=== PATIENT | male | born 1950 | race Caucasian/White ===

== ENCOUNTER 2019-08-29 09:32 | Emergency (ER) | payer BC, MEDICARE ==
[~2019-08-29] VITALS: Ht 165.1 cm; Wt 68.2 kg
--- NOTE | 2019-08-29 10:03 | NUR ---
PT AMBULATED FROM TRIAGE TO ROOM 1. ASSISTED PT INTO GOWN, PLACED PT ON MONITOR AND PT BECAME SOB, AND STATED MILD CP. PT NOTED TO HAVE HR 132. EKG REQUESTED
[2019-08-29] MEDS ORDERED: ondansetron/PF 4mg/2ml inj IV ONE (10:05)
[2019-08-29] MEDS ORDERED: normal saline 1000ML IV soln IVB ONE ×2 (10:05→10:20)
[2019-08-29] MEDS ORDERED: diphenhydrAMINE 50 mg/ml inj IV ONE (10:20)
[2019-08-29] MEDS ORDERED: metoclopramide 5 mg/ml inj IV ONE (10:20)
[2019-08-29] MEDS ORDERED: LORazepam 2 mg/ml vial IV ONE (10:20)
[2019-08-29 10:30] LABS: BASOPHILS % (AUTO) 0.7 % (0-1); EOSINOPHILS % (AUTO) 0 % (0-6); HEMATOCRIT 38.9 % (42.0-52.0); HEMOGLOBIN 13.4 g/dl (14.0-17.9); LYMPHOCYTES # (AUTO) 0.5 X10'3 (1.1-4.8); LYMPHOCYTES % (AUTO) 9.2 % (21-51); MEAN CORPUSCULAR HEMOGLOBIN 35.4 PG (27.0-31.0); MEAN CORPUSCULAR HGB CONC 34.4 g/dL (33.0-36.5); MEAN CORPUSCULAR VOLUME 103.1 FL (78-98); MEAN PLATELET VOLUME 7.1 FL (7.4-10.4); MONOCYTES # (AUTO) 0.7 X10'3 (0-0.9); MONOCYTES % (AUTO) 13.8 % (2-12); NEUTROPHILS # (AUTO) 3.9 X10'3 (1.8-7.7); NEUTROPHILS % (AUTO) 76.3 % (42-75); PLATELET COUNT 104 X10'3 (140-440); RED BLOOD COUNT 3.77 X10'6 (4.70-6.10); RED CELL DISTRIBUTION WIDTH 13.3 % (11.5-14.5); WHITE BLOOD COUNT 5.1 X10'3 (4.5-11.0)
[2019-08-29 10:46] LABS: ALANINE AMINOTRANSFERASE 47 U/L (12-78); ALBUMIN/GLOBULIN RATIO 0.8 (1.1-1.5); ALKALINE PHOSPHATASE 146 IU/L (46-116); ANION GAP 14 (8-16); ASPARTATE AMINO TRANSFERASE 76 U/L (10-37); BILIRUBIN,TOTAL 0.9 MG/DL (0.1-1.0); BLOOD UREA NITROGEN 11 MG/DL (7-18); BUN/CREATININE RATIO 11.5 (5.4-32.0); CALCIUM 8.9 MG/DL (8.5-10.1); CHLORIDE 103 MMOL/L (99-107); CREATININE 0.96 MG/DL (0.60-1.10); GLUCOSE 129 MG/DL (70-104); LIPASE 101 U/L (73-393); POTASSIUM 3.7 MMOL/L (3.5-5.1); SODIUM 140 MMOL/L (135-145); TOTAL CARBON DIOXIDE 23.4 MMOL/L (24-32); TOTAL PROTEIN 9.3 G/DL (6.4-8.2); eGFR 78 ML/MIN
[2019-08-29 11:12] LABS: CLARITY,URINE CLEAR (Clear); COLOR,URINE YELLOW (Yellow); GLUCOSE, URINE NEGATIVE (Neg); KETONES,URINE 15 mg/dl (Neg); LEUKOCYTE ESTERASE ,URINE NEGATIVE (Neg); NITRITES, URINE NEGATIVE (Neg); OCCULT BLOOD,URINE SMALL (Neg); PROTEIN,URINE 100 mg/dl (Neg)
[2019-08-29 11:14] LABS: UA COLLECTION TYPE VOIDED
[2019-08-29 11:15] LABS: BACTERIA,URINE NONE SEEN /HPF (Neg); MUCUS STRANDS NONE SEEN /LPF (Neg); RBC,URINE 0-2 /HPF (0-2); SQUAMOUS EPITHELIAL CELL,UR FEW /LPF (FEW); WBC,URINE 0-4 /HPF (0-4)
[2019-08-29] MEDS ORDERED: ONDA4TAB12 PO (11:46)
[2019-08-29 12:14] VITALS: BP 154/114
== END 2019-08-29 12:18 | disposition home or self-care (01) ==
LOC: ER 09:33
DX: R11.2 Nausea with vomiting, unspecified (principal); F10.10 Alcohol abuse, uncomplicated; Z88.5 Allergy status to narcotic agent; Z79.899 Other long term (current) drug therapy; Y90.9 Presence of alcohol in blood, level not specified
CPT/HCPCS: 36415; 80053; 81001; 83690; 85025; 93005; 96361; 96374; 96375; 99284; J1200; J2060; J2405; J2765; J7030

== ENCOUNTER 2022-01-19 04:53 | Emergency (ER) | payer MEDICARE ==
[~2022-01-19] VITALS: Ht 165.1 cm; Wt 77.2 kg
[~2022-01-19 04:53] MED LIST: ATEN-168 PO
[2022-01-19] MEDS ORDERED: ondansetron/PF 4mg/2ml inj IV ONE ×2 (05:35→06:00)
[2022-01-19] MEDS ORDERED: morphine 4 MG/ML inj SYRINge IV ONE ×2 (05:35→06:00)
--- NOTE | 2022-01-19 05:36 | NUR ---
advised dr lynn of pt vomiting and states severe abd pain who put in a verbal order for morphine mg and zofran 4mg.
[2022-01-19 05:46] LABS: BASOPHILS % (AUTO) 0.4 % (0-1); EOSINOPHILS % (AUTO) 0.1 % (0-6); HEMATOCRIT 32.3 % (42.0-52.0); LYMPHOCYTES # (AUTO) 0.3 X10'3 (1.1-4.8); LYMPHOCYTES % (AUTO) 2.5 % (21-51); MEAN CORPUSCULAR HEMOGLOBIN 35.9 PG (27.0-31.0); MEAN CORPUSCULAR HGB CONC 34.2 g/dL (33.0-36.5); MEAN CORPUSCULAR VOLUME 105.2 FL (78-98); MEAN PLATELET VOLUME 9.5 FL (7.4-10.4); MONOCYTES # (AUTO) 0.9 X10'3 (0-0.9); MONOCYTES % (AUTO) 7.5 % (2-12); NEUTROPHILS # (AUTO) 10.9 X10'3 (1.8-7.7); NEUTROPHILS % (AUTO) 89.5 % (42-75); PLATELET COUNT 80 X10'3 (140-440); RED BLOOD COUNT 3.07 X10'6 (4.70-6.10); RED CELL DISTRIBUTION WIDTH 15.5 % (11.5-14.5); WHITE BLOOD COUNT 12.2 X10'3 (4.5-11.0)
[2022-01-19 06:01] LABS: ALANINE AMINOTRANSFERASE 30 U/L (12-78); ALBUMIN 2.2 G/DL (3.4-5.0); ALKALINE PHOSPHATASE 426 IU/L (46-116); ANION GAP 14 (8-16); ASPARTATE AMINO TRANSFERASE 95 U/L (10-37); BILIRUBIN,TOTAL 11.5 MG/DL (0.1-1.0); BLOOD UREA NITROGEN 11 MG/DL (7-18); BUN/CREATININE RATIO 11.8 (5.4-32.0); CALCIUM 8.2 MG/DL (8.5-10.1); CHLORIDE 104 MMOL/L (99-107); CREATININE 0.93 MG/DL (0.60-1.10); GLUCOSE 120 MG/DL (70-104); SODIUM 140 MMOL/L (135-145); TOTAL CARBON DIOXIDE 21.9 MMOL/L (24-32); eGFR 80 ML/MIN
[2022-01-19 06:10] LABS: ALBUMIN/GLOBULIN RATIO 0.5 (1.1-1.5); POTASSIUM 3.6 MMOL/L (3.5-5.1)
[2022-01-19 06:23] LABS: LIPASE 2197 U/L (73-393)
[2022-01-19] MEDS ORDERED: proCHLORperazine 10 MG/2 ml inj IV ONE (06:45)
[2022-01-19 07:05] LABS: CLARITY,URINE CLEAR (Clear); GLUCOSE, URINE NEGATIVE (Neg); KETONES,URINE TRACE mg/dl (Neg); LEUKOCYTE ESTERASE ,URINE NEGATIVE (Neg); NITRITES, URINE NEGATIVE (Neg); OCCULT BLOOD,URINE TRACE-INTACT (Neg); PROTEIN,URINE TRACE mg/dl (Neg)
[2022-01-19 07:08] LABS: COLOR,URINE AMBER (Yellow); UA COLLECTION TYPE NON-SPECIFIED
[2022-01-19 07:12] LABS: SQUAMOUS EPITHELIAL CELL,UR FEW /LPF (FEW)
[2022-01-19 07:14] LABS: BACTERIA,URINE FEW /HPF (Neg); TRANSITIONAL EPI CELLS,URINE FEW /HPF; WBC,URINE 0-4 /HPF (0-4)
[2022-01-19 08:02] LABS: LACTIC SEPSIS 1.7 MMOL/L (0.4-2.0)
[2022-01-19 08:15] LABS: ETHANOL < 0.010 GM/DL (0.0-0.010)
[2022-01-19] MEDS ORDERED: ONDA8TAB13 PO ×2 (08:40)
[2022-01-19] MEDS ORDERED: OXYC-658 PO ×2 (08:40)
[2022-01-19 09:44] VITALS: BP 131/79
[2022-02-01] MEDS ORDERED: NO HOME MEDS (12:17)
[2022-02-03] MEDS ORDERED: AMOX-117 PO (16:44)
== END 2022-01-19 09:45 | disposition home or self-care (01) ==
LOC: ER 04:53
DX: K85.90 Acute pancreatitis without necrosis or infection, unspecified (principal); R10.84 Generalized abdominal pain; Z72.89 Other problems related to lifestyle; Z88.5 Allergy status to narcotic agent; Z79.899 Other long term (current) drug therapy
CPT/HCPCS: 36415; 74176; 76700; 80053; 80320; 81001; 82140; 83605; 83690; 84145; 84484; 85025; 87040; 93005; 96374; 96375; 99285; J0780; J2270; J2405

== ENCOUNTER 2022-01-29 17:15 | Emergency (ER) | payer MEDICARE ==
[~2022-01-29] VITALS: Ht 165.1 cm; Wt 79.0 kg
[~2022-01-29 17:15] MED LIST changes: +ONDA8TAB13 PO; +OXYC-658 PO
[2022-01-29 17:28] VITALS: BP 120/70
[2022-01-29 19:02] LABS: BASOPHILS # (AUTO) 0.1 X10'3 (0-0.2); BASOPHILS % (AUTO) 0.5 % (0-1); EOSINOPHILS # (AUTO) 0.1 X10'3 (0-0.9); EOSINOPHILS % (AUTO) 0.5 % (0-6); HEMATOCRIT 34.6 % (42.0-52.0); HEMOGLOBIN 11.8 g/dl (14.0-17.9); LYMPHOCYTES # (AUTO) 0.7 X10'3 (1.1-4.8); LYMPHOCYTES % (AUTO) 4.4 % (21-51); MEAN CORPUSCULAR HGB CONC 34.1 g/dL (33.0-36.5); MEAN CORPUSCULAR VOLUME 108.5 FL (78-98); MEAN PLATELET VOLUME 8.6 FL (7.4-10.4); MONOCYTES % (AUTO) 6.4 % (2-12); NEUTROPHILS % (AUTO) 88.2 % (42-75); PLATELET COUNT 274 X10'3 (140-440); RED BLOOD COUNT 3.19 X10'6 (4.70-6.10); WHITE BLOOD COUNT 15.8 X10'3 (4.5-11.0)
[2022-01-29 19:11] LABS: ALANINE AMINOTRANSFERASE 39 U/L (12-78); ALBUMIN 1.9 G/DL (3.4-5.0); ALKALINE PHOSPHATASE 326 IU/L (46-116); BILIRUBIN,TOTAL 21.7 MG/DL (0.1-1.0); BLOOD UREA NITROGEN 22 MG/DL (7-18); CALCIUM 8.6 MG/DL (8.5-10.1); CHLORIDE 106 MMOL/L (99-107); LIPASE 116 U/L (73-393); TOTAL CARBON DIOXIDE 21.6 MMOL/L (24-32)
[2022-01-29 19:26] LABS: ASPARTATE AMINO TRANSFERASE 93 U/L (10-37)
[2022-01-29 19:28] LABS: ALBUMIN/GLOBULIN RATIO 0.4 (1.1-1.5); ANION GAP 10 (8-16); BUN/CREATININE RATIO 13.8 (5.4-32.0); GLUCOSE 90 MG/DL (70-104); POTASSIUM 3.4 MMOL/L (3.5-5.1); SODIUM 138 MMOL/L (135-145); TOTAL PROTEIN 6.6 G/DL (6.4-8.2); eGFR 43 ML/MIN
[2022-02-01] MEDS ORDERED: NO HOME MEDS (12:17)
[2022-02-03] MEDS ORDERED: AMOX-117 PO (16:44)
== END 2022-01-29 21:38 | disposition left against medical advice (07) ==
LOC: ER 17:16
DX: R10.9 Unspecified abdominal pain (principal); Z53.21 Procedure and treatment not carried out due to patient leaving prior to being seen by health care provider
CPT/HCPCS: 36415; 80053; 83690; 85025